=== PATIENT | female | born 1965 ===

== ENCOUNTER 2022-02-17 06:26 | Day surgery (SDC) | payer OTHER ==
[~2022-02-17] VITALS: Ht 152.4 cm; Wt 79.8 kg
[~2022-02-17 06:26] MED LIST: CRESTOR20 MG PO; LEVO-T112 MCG PO; LYRICA50 MG PO
[2022-02-17] MEDS ORDERED: PERCOCET 5-3251 EACH PO (08:46)
[2022-02-17] MEDS ORDERED: NEURONTIN300 MG PO (08:46)
[2022-02-17] MEDS ORDERED: DERMOPLAST PAIN78 GM TOP (08:47)
[2022-02-17] MEDS ORDERED: KETO10TA2 PO (08:47)
== END 2022-02-17 14:15 | disposition home or self-care (01) ==
LOC: CIR.AMB 06:26 → EDBD 11:45 → CIR.AMB 11:45
PROVIDERS: ATTEND Surgery
DX: K64.2 Third degree hemorrhoids (principal); K64.1 Second degree hemorrhoids; Z88.2 Allergy status to sulfonamides; Z20.822 Contact with and (suspected) exposure to COVID-19; E03.9 Hypothyroidism, unspecified; Z86.73 Personal history of transient ischemic attack (TIA), and cerebral infarction without residual deficits; Z79.02 Long term (current) use of antithrombotics/antiplatelets; M19.90 Unspecified osteoarthritis, unspecified site; E66.9 Obesity, unspecified